=== PATIENT | female | born 1980 ===

== ENCOUNTER 2021-02-07 14:15 | Emergency (ER) | payer OTHER, SELFPAY ==
[2021-02-07 14:19] VITALS: BP 126/85; PULSE 73; RESP 16; TEMP 36.6; O2SAT 99; BMI 30.9
== END 2021-02-07 16:20 | disposition left against medical advice (07) ==
LOC: HO.ED 16:09
PROVIDERS: Emergency Provider Emergency Medicine
DX: R10.11 Right upper quadrant pain (principal); R11.2 Nausea with vomiting, unspecified; R19.7 Diarrhea, unspecified
CPT/HCPCS: 99281; 99282